=== PATIENT | female | born 1940 | race Caucasian/White ===

== ENCOUNTER 2025-05-19 13:34 | Emergency (ER) | payer MEDICARE ==
[~2025-05-19 13:34] MED LIST: BIOTIN1000 MCG PO; CIPROFLOXACIN500 MG PO; COLACE100 MG PO; COMPLEXED POTAS99 MG PO; LISINOPRIL/HCTZ1 TA1 PO; LISINOPRIL10 MG PO; MEDROL DOSEPAK4 MG PO; OMEPRAZOLE20 MG PO; OXYBUTYNIN10 MG PO; OXYBUTYNIN5 MG PO; PRAVACHOL20 MG PO; PYRIDIUM100 MG PO; SERTRALINE50 MG PO; TESSALON PERLE200 MG PO; VITAMIN B121000 MC2 SL; ZITHROMAX Z PA250 MG PO; ZOLOFT50 MG PO
[2025-05-19 13:38] VITALS: BP 141/47
[2025-05-19] MEDS ORDERED: SODIUM CHLORIDE 0.9% 500 ML IV ONE (14:15)
[2025-05-19 14:39] LABS: BASO # 0.0 10*3/uL (0.0-0.1); BASO % 0.2 % (0.0-1.0); EOS # 0.2 10*3/uL (0.0-0.4); EOS % 4.0 % (1.0-4.0); MEAN CELL VOLUME 89.4 fl (81.0-99.0); MEAN CORPUSCULAR HGB 28.5 pg (27.0-31.0); MEAN PLATELET VOLUME 10.1 fl (9.6-12.3); MONO # 0.3 10*3/uL (0.1-1.0); MONO % 5.1 % (3.0-9.0); NEUT # 3.8 10*3/uL (2.3-7.9); NEUT % 69.8 % (47.0-73.0); NUCLEATED RED BLOOD CELL 0.0 % (0.0-0.0); NUCLEATED RED BLOOD CELL 0.0 10*3/uL (0.0-0.0); PLATELET COUNT AUTOMATED 153 10*3/uL (130-400); RED CELL DISTRI WIDTH 13.7 % (0-14.5)
[2025-05-19 15:07] LABS: BUN 23 mg/dl (9-23); CPK 258 U/L (34-171)
[2025-05-19 15:48] LABS: BILIRUBIN Negative (Negative); BLOOD Negative (Negative); CLARITY Clear (Clear); COLOR Yellow (Yellow); KETONE Trace (Negative); LEUKO ESTERASE 1+ (Negative); NITRITE Negative (Negative); PH 6.0 (4.5-8.0); SPECIFIC GRAVITY 1.020 (1.001-1.030); UROBILINOGEN 1.0 E.U./dl (0.0-1.0)
[2025-05-19 15:56] LABS: BACTERIA 1+; RBC 0-2 rbc/hpf (0-2)
[2025-05-19] MEDS ORDERED: Ondansetron Hydrochloride 4 MG/2 ML VIAL IV ONE (16:05)
== END 2025-05-19 16:53 | disposition home or self-care (01) ==
LOC: ED 13:34
PROVIDERS: Emergency Medicine
DX: S00.03XA Contusion of scalp, initial encounter (principal); R55 Syncope and collapse; M54.50 Low back pain, unspecified; W18.39XA Other fall on same level, initial encounter; Y93.89 Activity, other specified; Y92.89 Other specified places as the place of occurrence of the external cause; Y99.8 Other external cause status